=== PATIENT | female | born 1935 | race Caucasian/White ===

== ENCOUNTER → 2023-04-24 11:48 | Outpatient (CLI) | payer MEDICARE, SELFPAY ==
[2022-09-26 22:04] VITALS: BMI 23.8
--- NOTE | 2023-04-24 11:50 | DI.ECHO.S_ITS ---
[facility] +---------+ : : [address] [place] : : : : [id number] : : : : Phone: [phone]+ Echocardiogram Report + + :Name: RO PAULSON Study Date: 04/24/2023 Height: 65 in : :[facility] ReadingLocation: Weight: 130 lb : : Gender: Female BSA: 1.6 m2 : :: 1935 Age: 87 yrs BP: 166/66 mmHg: :Reason For Study: CHRONIC HEART FAILURE : :Ordering Physician: CITLALI, : :PATRICIA Performed By: Kelvin Jacob : :Referring: PATRICIA HEARD : + + Interpretation Summary 1) Normal left ventricular thickness, size, wall motion, and systolic function (EF 60-65%). 2) Normal right ventricular size and function. 3) The left atrium is severely dilated. 4) Bileaflet mitral valve prolapse 5) There is moderate late systolic mitral regurgitation. 6) The right ventricular systolic pressure is estimated to be at least 42 mmHg based on an estimated right atrial pressure of 3 mm Hg. 7) Compared to the Echo done 09/27/2022, no significant change. Procedure: A two-dimensional transthoracic echocardiogram with color flow and Doppler was performed. The study quality was technically adequate. Comparison is made with the echocardiogram of 09/27/22. The patient was in normal sinus rhythm during the exam. Left Ventricle: The left ventricle is normal in size and wall thickness. The ejection fraction is estimated to be 60-65%. Left ventricular systolic function appears normal without focal wall motion abnormalities. Right Ventricle: The right ventricle is normal size. The right ventricular systolic function is normal. Atria: The left atrium is severely dilated. The right atrium is normal in size. Mitral Valve: The mitral valve leaflets are slightly calcified. Mitral valve prolapse is present. There is no mitral valve stenosis. There is moderate mitral regurgitation. Aortic Valve: The aortic valve is trileaflet. There is no aortic valve stenosis. There is trace aortic regurgitation. Tricuspid Valve: The tricuspid valve is normal in structure and function. There is no tricuspid stenosis. There is a trace or physiologic amount of tricuspid regurgitation. The right ventricular systolic pressure is estimated to be at least 42 mmHg based on an estimated right atrial pressure of 3 mm Hg. Pulmonic Valve: The pulmonic valve is not well visualized. There is no pulmonic valvular stenosis. There is mild pulmonic regurgitation. Great Vessels: The IVC is of normal diameter and collapses greater than 50% with a sniff. This suggests a low right atrial pressure of 3 mm Hg. MMode/2D Measurements & Calculations LVIDd: 4.6 cm LVOT diam: 2.1 cm LVIDs: 3.0 cm Ao root diam: 3.1 cm FS: 35.7 % asc Aorta Diam: 3.2 cm IVSd: 1.6 cm Ao Arch Diam (Prox Trans): 2.8 cm LVPWd: 0.98 cm LV ybarra. diameter/BSA (cm/m^2): 2.8 LV sys. diameter/BSA (cm/m^2): 1.8 LA A2 area: 25.3 cm2 RA long axis: 5.5 cm LA A4 area: 25.3 cm2 RA area: 17.2 cm2 LA length (vol): 5.2 cm RA vol: 45.8 ml LA vol: 104.1 ml RA : 27.8 ml/m2 LA vol index: 63.2 ml/m2 IVC diam: 1.2 cm TAPSE: 2.9 cm Doppler Measurements & Calculations Ao V2 max: 149.4 cm/sec LVOT Max Damion: 78.0 cm/sec Ao V2 mean: 98.2 cm/sec LV V1 max P.4 mmHg Ao max P.9 mmHg LV V1 VTI: 20.3 cm Ao mean P.3 mmHg ERNIE(I,D): 2.1 cm2 Ao V2 VTI: 34.4 cm ERNIE(V,D): 1.8 cm2 sev ratio: 0.59 ERNIE indexed to BSA (cm^2/m^2): 1.3 MV E max damion: 87.1 cm/sec TR max damion: 310.7 cm/sec MV A max damion: 85.3 cm/sec TR max P.6 mmHg MV E/A: 1.0 PA V2 max: 97.8 cm/sec Med Peak E' Damion: 4.6 cm/sec PA V2 mean: 68.8 cm/sec E/E' med: 18.9 PA mean P.0 mmHg Lat Peak E' Damion: 7.6 cm/sec PA pr(Accel): 36.2 mmHg E/E' lat: 11.5 E/e' average: 15.2 MV dec time: 0.20 sec [facility] 70.9 ml Reading Physician:03:30 PM
== END ==
PROVIDERS: Family Provider Internal Medicine; PCP Internal Medicine; Referring Provider Internal Medicine Cardiovascular Disease; Visit Provider Internal Medicine Cardiovascular Disease
DX: I34.0 Nonrheumatic mitral (valve) insufficiency (principal); I34.1 Nonrheumatic mitral (valve) prolapse; I37.1 Nonrheumatic pulmonary valve insufficiency; I50.32 Chronic diastolic (congestive) heart failure
CPT/HCPCS: 93306